=== PATIENT | male | born 1970 | race Hispanic/Latino ===

== ENCOUNTER 2019-10-15 06:18 | Inpatient (IN) | payer OTHER ==
[2019-10-15] VITALS (46 sets, daily range): BP systolic 41–201; BP diastolic 22–124
[~2019-10-15] VITALS: Ht 162.6 cm; Wt 77.9 kg
[2019-10-15] MEDS ORDERED: THIAMINE HCL 100 MG/ML 2ML VIAL ONE (06:39)
[2019-10-15] MEDS ORDERED: SODIUM CHLORIDE 0.9% 1000ML 1,000 ML IV ONE ×3 (06:40→09:46)
[2019-10-15 06:50] LABS: BASOPHILS % (AUTO) 0.2 % (0.0-5.0); EOSINOPHILS % (AUTO) 0.2 % (0.0-8.0); HEMATOCRIT 31.1 % (42-54); LYMPHOCYTES % (AUTO) 11.6 % (21.0-51.0); MEAN CORPUSCULAR HEMOGLOBIN 26.3 pg (27.0-33.0); MEAN CORPUSCULAR HGB CONC 33.8 g/dL (32.0-36.0); MEAN CORPUSCULAR VOLUME 77.8 fL (79-99); MONOCYTES % (AUTO) 1.6 % (3.0-13.0); NEUTROPHILS % (AUTO) 84.8 % (40.0-77.0); NUCLEATED RED BLOOD CELLS 0.1 % (0.0-0.19); PLATELET COUNT (AUTO) 244 K/uL (130-400); RED CELL DISTRIBUTION WIDTH 14.8 % (11.0-15.5)
[2019-10-15] MEDS ORDERED: NITROGLYCERIN 1GM/1 INCH PACKET TD ONE (07:04)
[2019-10-15 07:17] LABS: ALANINE AMINOTRANSFERASE 30 U/L (12-78); ALBUMIN 1.3 g/dL (3.5-5.0); ASPARTATE AMINOTRANSFERASE 38 U/L (10-37); BILIRUBIN,TOTAL 0.6 mg/dL (0.2-1.0); CARBON DIOXIDE 14 mmol/L (21-32); CHLORIDE 96 mmol/L (101-111); GLOMERULAR FILTR. RATE CALC 7 mL/min (>60); GLUCOSE,RANDOM 228 mg/dL (70-105); POTASSIUM 5.2 mmol/L (3.5-5.1); SODIUM SERUM 127 mmol/L (136-145); TOTAL PROTEIN, SERUM 7.5 g/dL (6.0-8.3)
[2019-10-15 07:43] LABS: AMPHET/METH SCREEN,URINE NEGATIVE (NEGATIVE); BARBITURATE SCREEN, URINE NEGATIVE (NEGATIVE); BENZODIAZEPINES SCREEN,URINE NEGATIVE (NEGATIVE); CANNABINOID SCREEN,URINE NEGATIVE (NEGATIVE); COCAINE SCREEN,URINE POSITIVE (NEGATIVE); OPIATE SCREEN,URINE NEGATIVE (NEGATIVE); PHENCYCLIDINE SCREEN,URINE NEGATIVE (NEGATIVE)
[2019-10-15] MEDS ORDERED: LORAZEPAM 2 MG/ML 1 ML VIAL ONE (07:45)
[2019-10-15 08:04] LABS: CREATININE 9.2 mg/dL (0.5-1.5); UREA NITROGEN, BLOOD 102 mg/dL (7-18)
[2019-10-15] MEDS ORDERED: SODIUM BICARB 50MEQ 50ML VIAL ONE (08:21)
[2019-10-15] MEDS ORDERED: INSULIN HUMULIN R 100 UNIT/ML 3ML ONE (08:23)
[2019-10-15 08:30] LABS: APPEARANCE,URINE SL CLOUDY (CLEAR); BILIRUBIN,URINE NEGATIVE (NEGATIVE); COLOR,URINE YELLOW (YELLOW); GLUCOSE, URINE (UA) 100 mg/dL (NEGATIVE); KETONES,URINE NEGATIVE (NEGATIVE); LEUKOCYTE ESTERASE ,URINE NEGATIVE (NEGATIVE); NITRATE,URINE NEGATIVE (NEGATIVE); OCCULT BLOOD,URINE SMALL (NEGATIVE); PH,URINE 5.5 (5.0-8.0); PROTEIN,URINE >=300 mg/dL (NEGATIVE); UROBILINOGEN,URINE 0.2 mg/dL (0.2-1.0)
[2019-10-15 08:42] LABS: AMORPHOUS SEDIMENT,UR Moderate /LPF (None Seen)
[2019-10-15 08:43] LABS: BACTERIA,URINE Few /HPF (None Seen); RBC,URINE 0-1 /HPF (0-1); WBC,URINE 0-1 /HPF (0-1)
[2019-10-15 08:44] LABS: SQUAMOUS EPITHELIAL CELL,UR 0-2 /HPF (0-2)
[2019-10-15 08:49] LABS: ACETAMINOPHEN < 1 mcg/mL (10-29); ALCOHOL, BLOOD < 3 mg/dL (0-10); SALICYLATE < 2.8 mg/dL (2.8-20.0)
[2019-10-15 09:07] LABS: INR 1.06 (0.85-1.15); PARTIAL THROMBOPLASTIN TIME 32.3 SEC (26.3-35.5); PROTHROMBIN TIME 11.1 SEC (9.6-11.6)
[2019-10-15 09:07] LABS: ABG BASE EXCESS -12.5 mmol/L (-2.0-3.0); ABG HCO3 11.3 mmol/L (21.0-28.0); ABG OXYGEN SATURATION 92.4 % (95.0-99.0); ABG PCO2 21 mmHg (35-48)
[2019-10-15] MEDS ORDERED: SODIUM BICARB 8.4% 50ML SYRING 150 MEQ in SODIUM CHLORIDE 0.9% 1000ML 1,000 ML IVP SCH (09:15)
[2019-10-15 09:17] LABS: CREATINE KINASE, TOTAL 78 U/L (21-232); MYOGLOBIN 223 ng/mL (10-92); TROPONIN I < 0.04 ng/mL (0.00-0.06)
[2019-10-15] MEDS ORDERED: ZOSYN 3.375GM+NS 50ML 50 ML IV ONE (09:19)
[2019-10-15] MEDS ORDERED: SODIUM CHLORIDE 0.9% 1000ML 1,000 ML IV SCH (09:22)
[2019-10-15] MEDS ORDERED: DiphenhydrAMINE HCL 50 MG/ML VIAL ONE (09:29)
[2019-10-15] MEDS ORDERED: PROCHLORPERAZINE EDISYLATE 10 MG/2 ML VIAL ONE (09:29)
[2019-10-15] MEDS ORDERED: VANCOMYCIN 1GM+NS 250ML 250 ML IV SCH (09:30)
[2019-10-15] MEDS ORDERED: VANCOMYCIN 1.25 GM in SODIUM CHLORIDE 0.9% 250 ML IV SCH (09:30)
[2019-10-15] MEDS ORDERED: ACETAMINOPHEN 325 MG TAB PO PRN (09:30)
[2019-10-15] MEDS ORDERED: MORPHINE SULFATE 2 MG/ML 1ML SYG IV PRN (09:30)
[2019-10-15] MEDS ORDERED: ONDANSETRON HCL 4 MG/2 ML VIAL IV PRN (09:30)
[2019-10-15] MEDS ORDERED: ETOMIDATE 2 MG/ML 10 ML VIAL IVP ONE (11:47)
[2019-10-15] MEDS ORDERED: EPINEPHRINE 0.1 MG/ML 10 ML SYG IVP ONE ×2 (11:48→14:23)
[2019-10-15] MEDS ORDERED: SODIUM BICARB 8.4% 50ML SYRINGE IVP ONE (11:48)
[2019-10-15] MEDS ORDERED: CALCIUM CHLORIDE 100 MG/ML 10 ML SYG IVP ONE (11:48)
[2019-10-15] MEDS: INSULIN HUMULIN R 100 UNIT/ML 3ML SQ SCH ×4 (12:00→21:00)
--- NOTE | 2019-10-15 12:05 | NUR ---
patient arrived from ER; restless, confused, and slurred speech; very anxious and trying to pull out piv and tele monitor; at bedside; md aware; orders to follow
[2019-10-15] MEDS ORDERED: LORAZEPAM 2 MG/ML 1 ML VIAL IVP PRN (13:06)
[2019-10-15] MEDS: MEROPENEM 500 MG VIAL IV SCH ×2 (13:15→21:34)
[2019-10-15] MEDS ORDERED: LABETALOL HCL 5 MG/ML 20ML VIAL IV SCH (13:15)
[2019-10-15] MEDS: FAMOTIDINE/PF 20 MG/2 ML VIAL IV SCH (13:15)
[2019-10-15] MEDS ORDERED: ZIPRASIDONE MESYLATE 20 MG/VIAL IM PRN (14:15)
[2019-10-15] MEDS ORDERED: ROCURONIUM BROMIDE 10MG/1ML 5ML VL IV ONE (14:22)
[2019-10-15] MEDS ORDERED: NOREPINEPHRINE BITARTRATE 1 MG/1 ML ML IV ONE (14:23)
[2019-10-15] MEDS: LINEZOLID 600 MG/ISO-OSM 300 ML IV SCH (14:28)
[2019-10-15] MEDS ORDERED: SODIUM POLYSTYRENE SULFONATE 15 GM/60 ML ML PO SCH (14:30)
[2019-10-15] MEDS ORDERED: LABETALOL 20 MG/4 ML DISP.SYRIN IV PRN (14:30)
[2019-10-15] MEDS ORDERED: OSELTAMIVIR PHOSPHATE 75 MG CAP PO SCH (14:30)
[2019-10-15] MEDS ORDERED: CALCIUM GLUCONATE 1 GM/10 ML VIAL IV SCH (14:30)
[2019-10-15] MEDS ORDERED: DEXTROSE 50%-WATER 50 ML DISP.SYRIN IV SCH (14:30)
[2019-10-15] MEDS: DIAZEPAM 5 MG/ML 2 ML SYG IV SCH ×2 (14:38→21:40)
[2019-10-15 14:40] LABS: POTASSIUM 4.8 mmol/L (3.5-5.1)
[2019-10-15 14:41] LABS: % IRON SATURATION 26.4 % (30-44)
[2019-10-15 14:45] LABS: CREATININE 8.2 mg/dL (0.5-1.5)
[2019-10-15] MEDS ORDERED: PROPOFOL 1000 MG/100 ML 100 ML IV ONE (14:45)
[2019-10-15] MEDS ORDERED: FENTANYL CITRATE PF 50 MCG/1 ML 2ML VIAL IVP SCH (14:45)
[2019-10-15] MEDS ORDERED: PROPOFOL 1000 MG/100 ML IV PRN (14:45)
[2019-10-15] MEDS ORDERED: FENTANYL CITRATE PF 50 MCG/1 ML 2ML VIAL ONE (14:46)
[2019-10-15] MEDS ORDERED: PROPOFOL 1000 MG/100 ML 100 ML IV PRN (15:00)
[2019-10-15] MEDS ORDERED: CALCIUM GLUCONATE 1 GM in SODIUM CHLORIDE 0.9% 50 ML IV SCH (15:00)
[2019-10-15] MEDS ORDERED: COMPOUND PO MISCELLANEOUS 1 EACH MISC MISC PRN (15:00)
[2019-10-15] MEDS ORDERED: HYDROMORPHONE 4MG/ML 1ML VIAL IVP PRN (15:00)
[2019-10-15 15:25] LABS: ABG BASE EXCESS -11.4 mmol/L (-2.0-3.0); ABG HCO3 14.3 mmol/L (21.0-28.0); ABG OXYGEN SATURATION 91.2 % (95.0-99.0); ABG PCO2 31 mmHg (35-48)
[2019-10-15 15:30] LABS: PROTEIN,URINE RANDOM 651.9 mg/dL (0-11.9)
[2019-10-15] MEDS ORDERED: NOREPINEPHRINE 4MG/NS 250ML 250 ML IV SCH (15:45)
[2019-10-15] MEDS: MIDAZOLAM 100MG-0.9% NS 100ML 100 ML IV PRN (15:47)
[2019-10-15] MEDS: SODIUM BICARB 8.4% 50ML SYRING 150 MEQ in DEXTROSE 5%-WATER 1,000 ML IV SCH (15:47)
[2019-10-15] MEDS: M.V.I. IV [ADULT] 10 ML, FOLIC ACID 1 MG, THIAMINE HCL 100 MG in SODIUM CHLORIDE 0.9% 1... IV SCH (15:49)
[2019-10-15] MEDS: ATROPINE SULFATE 0.1 MG/ML 10 ML SYG IVP ONE ×2 (15:54→16:01)
[2019-10-15] MEDS ORDERED: ATROPINE SULFATE 0.1 MG/ML 10 ML SYG IVP SCH (16:00)
--- NOTE | 2019-10-15 16:00 | NUR ---
patient intubated at 1450, became bradycardic and pulseless, which resulted in code blue being called; patient received cpr and meds as charted in code blue form; family in waiting area and aware; family updated by dr doshi and dr helton.
--- NOTE | 2019-10-15 16:00 | NUR ---
successful lumbar puncture done at bedside by dr doshi; specimens sent to lab; patient remains intubated and sedated
[2019-10-15] MEDS: ARTIFICAL TEARS SOL 15 ML OU SCH ×3 (16:06→21:35)
[2019-10-15 16:42] LABS: GLUCOSE, CSF 66 mg/dL (40-70); TOTAL PROTEIN, CSF 37 mg/dL (15-45)
[2019-10-15] MEDS ORDERED: CISATRACURIUM BESYLATE 200 MG in SODIUM CHLORIDE 0.9% 180 ML IV PRN (17:00)
[2019-10-15] MEDS ORDERED: SODIUM BICARB 50MEQ 50ML VIAL IV SCH (17:00)
--- NOTE | 2019-10-15 17:30 | NUR ---
patient placed on cooling blanket for hypothermia protocol as per Dr. Hay's order; blanket set to 33 degrees Celsius
[2019-10-15] MEDS: NOREPINEPHRINE 4MG/NS 250ML 250 ML IV SCH (17:33)
[2019-10-15] MEDS: SODIUM CHLORIDE 0.9% IV PRN (17:43)
[2019-10-15] MEDS: CISATRACURIUM BESYLATE IV PRN (17:43)
[2019-10-15 17:44] LABS: APPEARANCE,CSF CLEAR (CLEAR); COLOR,CSF COLORLESS (COLORLESS); CSF TUBE NUMBER TUBE NO.1
[2019-10-15 17:45] LABS: RED BLOOD CELL1,CSF 60 CMM (0-0); WHITE BLOOD CELL1,CSF 25 CMM (0-5)
--- NOTE | 2019-10-15 18:00 | NUR ---
patient continues to be 4:4 for TOF; will continue to increase nimbex until goal of 1:4 is reached, as ordered by Dr. Hay
[2019-10-15] MEDS: IPRATROPIUM/ALBUTEROL SULFATE 3 ML SOLUTION IH SCH ×2 (18:13→21:49)
[2019-10-15 18:36] LABS: APPEARANCE2,CSF CLEAR (CLEAR); COLOR2,CSF COLORLESS (COLORLESS); CSF 2ND TUBE NUMBER TUBE NO.4
[2019-10-15 19:19] LABS: LYMPHOCYTES1,CSF 65 %; MONOCYTES1,CSF 7 %; NEUTROPHILS1,CSF 28 %
[2019-10-15 19:53] LABS: ABG BASE EXCESS -7.7 mmol/L (-2.0-3.0); ABG HCO3 17.2 mmol/L (21.0-28.0); ABG OXYGEN SATURATION 99.6 % (95.0-99.0); ABG PCO2 34 mmHg (35-48)
[2019-10-15 20:22] LABS: HEMATOCRIT 25.9 % (42-54); MEAN CORPUSCULAR HEMOGLOBIN 26.5 pg (27.0-33.0); PLATELET COUNT (AUTO) 161 K/uL (130-400); RED BLOOD CELL COUNT(AUTO) 3.32 MIL/uL (4.50-6.20); RED CELL DISTRIBUTION WIDTH 14.8 % (11.0-15.5); WHITE BLOOD COUNT (AUTO) 13.9 K/uL (4.8-10.8)
[2019-10-15 20:53] LABS: POTASSIUM 4.7 mmol/L (3.5-5.1)
[2019-10-15 21:00] LABS: CREATININE 8.1 mg/dL (0.5-1.5)
[2019-10-15 21:09] LABS: CSF LYMPHOCYTES2 56 %; MONOCYTES2,CSF 2 %; NEUTROPHILS2,CSF 42 %
[2019-10-15] MEDS: COMPOUNDING VEHICLE NO 8 PO SCH ×3 (21:31)
[2019-10-15] MEDS: [UNRECOGNIZED DRUG - OTHER] PO SCH ×3 (21:31)
[2019-10-15] MEDS: OSELTAMIVIR PHOSPHATE PO SCH ×3 (21:31)
[2019-10-15 21:43] LABS: BAND NEUTROPHILS % (MANUAL) 10 % (0-2); LYMPHOCYTES % (MANUAL) 6 % (22-44); REACTIVE LYMPHOCYTES 1 % (0-0); SEGMENTED NEUTROPHILS % 83 % (40-70)
[2019-10-15 21:43] LABS: ABG BASE EXCESS -8.7 mmol/L (-2.0-3.0); ABG HCO3 16.6 mmol/L (21.0-28.0); ABG OXYGEN SATURATION 97.3 % (95.0-99.0); ABG PCO2 35 mmHg (35-48)
[2019-10-15 21:44] LABS: MAN.DIFF COMMENT-IMPRESSION MANUAL DIFFERENTIAL
[2019-10-16] VITALS (99 sets, daily range): BP systolic 74–212; BP diastolic 52–116
[2019-10-16] MEDS: SODIUM CHLORIDE 0.9% IV PRN ×3 (00:19→20:53)
[2019-10-16] MEDS: CISATRACURIUM BESYLATE IV PRN ×3 (00:19→20:53)
[2019-10-16] MEDS: MIDAZOLAM 100MG-0.9% NS 100ML 100 ML IV PRN ×3 (00:21→23:14)
[2019-10-16] MEDS: IPRATROPIUM/ALBUTEROL SULFATE 3 ML SOLUTION IH SCH ×6 (01:31→22:21)
[2019-10-16] MEDS: SODIUM BICARB 8.4% 50ML SYRING 150 MEQ in DEXTROSE 5%-WATER 1,000 ML IV SCH ×3 (01:35→20:55)
[2019-10-16] MEDS: LINEZOLID 600 MG/ISO-OSM 300 ML IV SCH ×2 (01:36→14:26)
[2019-10-16] MEDS: ARTIFICAL TEARS SOL 15 ML OU SCH ×6 (03:00→21:04)
[2019-10-16 03:44] LABS: BASOPHILS % (AUTO) 0.1 % (0.0-5.0); EOSINOPHILS % (AUTO) 0.8 % (0.0-8.0); HEMATOCRIT 21.8 % (42-54); LYMPHOCYTES % (AUTO) 2.4 % (21.0-51.0); MEAN CORPUSCULAR HEMOGLOBIN 26.2 pg (27.0-33.0); MEAN CORPUSCULAR HGB CONC 33.9 g/dL (32.0-36.0); MEAN CORPUSCULAR VOLUME 77.3 fL (79-99); MONOCYTES % (AUTO) 1.3 % (3.0-13.0); NEUTROPHILS % (AUTO) 93.6 % (40.0-77.0); PLATELET COUNT (AUTO) 125 K/uL (130-400); RED BLOOD CELL COUNT(AUTO) 2.82 MIL/uL (4.50-6.20); RED CELL DISTRIBUTION WIDTH 14.6 % (11.0-15.5); WHITE BLOOD COUNT (AUTO) 7.2 K/uL (4.8-10.8)
[2019-10-16 04:00] LABS: HEMOGLOBIN A1C 5.4 % (4.0-6.0)
[2019-10-16 04:04] LABS: ALANINE AMINOTRANSFERASE 21 U/L (12-78); ALBUMIN 0.8 g/dL (3.5-5.0); ASPARTATE AMINOTRANSFERASE 23 U/L (10-37); BILIRUBIN,TOTAL 0.4 mg/dL (0.2-1.0); CARBON DIOXIDE 22 mmol/L (21-32); CHLORIDE 102 mmol/L (101-111); CREATININE 7.5 mg/dL (0.5-1.5); GLOMERULAR FILTR. RATE CALC 8 mL/min (>60); PHOSPHORUS 8.3 mg/dL (2.5-4.9); POTASSIUM 3.8 mmol/L (3.5-5.1); SODIUM SERUM 137 mmol/L (136-145); TOTAL PROTEIN, SERUM 4.9 g/dL (6.0-8.3)
[2019-10-16 04:15] LABS: ABG BASE EXCESS -3.4 mmol/L (-2.0-3.0); ABG HCO3 19.6 mmol/L (21.0-28.0); ABG OXYGEN SATURATION 99.2 % (95.0-99.0); ABG PCO2 30 mmHg (35-48)
[2019-10-16 04:15] LABS: INR 1.09 (0.85-1.15); PARTIAL THROMBOPLASTIN TIME 32.5 SEC (26.3-35.5); PROTHROMBIN TIME 11.4 SEC (9.6-11.6)
[2019-10-16 04:32] LABS: GLUCOSE,RANDOM 268 mg/dL (70-105)
[2019-10-16 04:34] LABS: AMMONIA < 10 umol/L (11-32)
[2019-10-16 04:35] LABS: UREA NITROGEN, BLOOD 90 mg/dL (7-18)
[2019-10-16] MEDS: DIAZEPAM 5 MG/ML 2 ML SYG IV SCH ×3 (06:15→21:03)
[2019-10-16] MEDS: INSULIN HUMULIN R 100 UNIT/ML 3ML SQ SCH ×8 (06:28→21:00)
--- NOTE | 2019-10-16 08:02 | NUR ---
patient remains on cooling blanket for hypothermia protocol; TOF remains 4:4 but subtly visible
[2019-10-16] MEDS: MEROPENEM 500 MG VIAL IV SCH ×2 (08:39→20:53)
[2019-10-16] MEDS: FAMOTIDINE/PF 20 MG/2 ML VIAL IV SCH (08:39)
[2019-10-16] MEDS: [UNRECOGNIZED DRUG - OTHER] PO SCH ×6 (08:43→20:54)
[2019-10-16] MEDS: OSELTAMIVIR PHOSPHATE PO SCH ×6 (08:43→20:54)
[2019-10-16] MEDS: COMPOUNDING VEHICLE NO 8 PO SCH ×6 (08:43→20:54)
[2019-10-16] MEDS ORDERED: FLU VACC QS2019-20 36MOS UP/PF 60 MCG/0.5 ML ML IM SCH (09:00)
[2019-10-16] MEDS ORDERED: ENOXAPARIN SODIUM 30 MG/0.3 ML SQ SCH (09:00)
[2019-10-16] MEDS: M.V.I. IV [ADULT] 10 ML, FOLIC ACID 1 MG, THIAMINE HCL 100 MG in SODIUM CHLORIDE 0.9% 1... IV SCH (09:05)
[2019-10-16 15:01] LABS: ALBUMIN 0.6 g/dL (3.5-5.0); CREATININE 7.2 mg/dL (0.5-1.5)
[2019-10-16 15:14] LABS: HEMATOCRIT 19.2 % (42-54)
[2019-10-16 16:48] LABS: RETICULOCYTE % (AUTO) 0.35 % (0.42-2.23)
--- NOTE | 2019-10-16 16:56 | NUR ---
cm note met with patients tami, pt currently intubated. states pt resides athome with her and adult child, pt independent with ambulation and adls. no dme. states will probably need Hemodialysis.[facility] has already spoken to [employer] about possible disability. will continue to follow as pt progresses. Addendum: 10/16/19 at 1701 by KYLE PUENTE CM Amended: Links added.
[2019-10-16] MEDS ORDERED: SODIUM CHLORIDE 0.9% 1000ML 1,000 ML IV ONE (17:46)
--- NOTE | 2019-10-16 18:44 | NUR ---
ns liter pulled for dialysis; not given
[2019-10-16] MEDS ORDERED: PANTOPRAZOLE 40 MG/VIAL IVP SCH (19:30)
[2019-10-16] MEDS ORDERED: SODIUM CHLORIDE 0.9% 1000ML 1,000 ML IV PRN (19:45)
[2019-10-16] MEDS ORDERED: LIDOCAINE HCL-MPF 1% 2ML VIAL IJ PRN (19:45)
[2019-10-16] MEDS ORDERED: HEPARIN SODIUM 5000UNIT/ML 1ML VIAL IJ PRN (19:45)
[2019-10-16] MEDS ORDERED: 0.9% SODIUM CHLORIDE 1000 ML IV BAG IV PRN (19:45)
[2019-10-16] MEDS ORDERED: ACETAMINOPHEN 325 MG TAB PO PRN (19:45)
[2019-10-16] MEDS ORDERED: OCTREOTIDE ACETATE 100 MCG/ML AMP IV SCH (19:45)
[2019-10-16] MEDS: HEPARIN SODIUM 5000UNIT/ML 1ML VIAL IJ PRN (19:54)
[2019-10-16] MEDS: OCTREOTIDE ACETATE 500 MCG in SODIUM CHLORIDE 0.9% 97.5 ML IV PRN (20:55)
[2019-10-16] MEDS: PANTOPRAZOLE SODIUM 80 MG in SODIUM CHLORIDE 0.9% 100 ML IV SCH (20:56)
[2019-10-16 22:31] LABS: HEMATOCRIT 25.5 % (42-54)
[2019-10-17] VITALS (92 sets, daily range): BP systolic 79–199; BP diastolic 48–119
[2019-10-17] MEDS: IPRATROPIUM/ALBUTEROL SULFATE 3 ML SOLUTION IH SCH ×6 (02:28→22:06)
[2019-10-17] MEDS: LINEZOLID 600 MG/ISO-OSM 300 ML IV SCH ×2 (02:32→12:50)
[2019-10-17] MEDS: ARTIFICAL TEARS SOL 15 ML OU SCH ×6 (02:33→23:00)
[2019-10-17 03:53] LABS: ABG BASE EXCESS 1.6 mmol/L (-2.0-3.0); ABG HCO3 23.6 mmol/L (21.0-28.0); ABG OXYGEN SATURATION 96.2 % (95.0-99.0); ABG PCO2 30 mmHg (35-48)
[2019-10-17 04:05] LABS: HEMATOCRIT 23.9 % (42-54); MEAN CORPUSCULAR HEMOGLOBIN 26.9 pg (27.0-33.0); MEAN CORPUSCULAR HGB CONC 35.1 g/dL (32.0-36.0); MEAN CORPUSCULAR VOLUME 76.6 fL (79-99); PLATELET COUNT (AUTO) 73 K/uL (130-400); RED BLOOD CELL COUNT(AUTO) 3.12 MIL/uL (4.50-6.20); RED CELL DISTRIBUTION WIDTH 14.3 % (11.0-15.5); WHITE BLOOD COUNT (AUTO) 6.3 K/uL (4.8-10.8)
[2019-10-17 04:20] LABS: BILIRUBIN,TOTAL 0.4 mg/dL (0.2-1.0); CREATININE 4.7 mg/dL (0.5-1.5); INR 1.16 (0.85-1.15); MAGNESIUM 2.2 mg/dL (1.80-2.40); PARTIAL THROMBOPLASTIN TIME 46.4 SEC (26.3-35.5); PHOSPHORUS 5.3 mg/dL (2.5-4.9); PROTHROMBIN TIME 12.1 SEC (9.6-11.6); TOTAL PROTEIN, SERUM 4.1 g/dL (6.0-8.3)
[2019-10-17 04:26] LABS: ALBUMIN 0.6 g/dL (3.5-5.0)
--- NOTE | 2019-10-17 05:18 | NUR ---
Assumed care at 1900. Patient remains on hypothermia protocol. Patient sedated and paralyzed. Dialysis stopped at approximately 1930. 500cc pulled as per dialysis nurse. Protonix drip and sandostatin initiated on shift as ordered. Patient continues on multiple continuous infusions. Multi lumen PICC line placement should be considered. Will communicate to oncoming shift to discuss with primary. Will continue to monitor.
[2019-10-17] MEDS: DIAZEPAM 5 MG/ML 2 ML SYG IV SCH (05:42)
[2019-10-17] MEDS: INSULIN HUMULIN R 100 UNIT/ML 3ML SQ SCH ×5 (06:00→18:00)
[2019-10-17] MEDS: MEROPENEM 500 MG VIAL IV SCH ×2 (08:03→21:11)
[2019-10-17] MEDS: FAMOTIDINE/PF 20 MG/2 ML VIAL IV SCH (08:04)
[2019-10-17] MEDS: PANTOPRAZOLE SODIUM 80 MG in SODIUM CHLORIDE 0.9% 100 ML IV SCH ×2 (08:16→16:54)
[2019-10-17] MEDS: [UNRECOGNIZED DRUG - OTHER] PO SCH ×6 (08:23→21:00)
[2019-10-17] MEDS: COMPOUNDING VEHICLE NO 8 PO SCH ×6 (08:23→21:00)
[2019-10-17] MEDS: OSELTAMIVIR PHOSPHATE PO SCH ×6 (08:23→21:00)
[2019-10-17] MEDS: FENTANYL 2500MCG+NS 250ML 250 ML IV PRN (08:49)
[2019-10-17] MEDS ORDERED: DIAZEPAM 5 MG/ML 2 ML SYG IV PRN (09:45)
[2019-10-17] MEDS: MIDAZOLAM 100MG-0.9% NS 100ML 100 ML IV PRN ×2 (10:08→19:44)
[2019-10-17] MEDS ORDERED: PHARMACY COMMUNICATION MISC SCH (11:15)
--- NOTE | 2019-10-17 11:31 | NUR ---
YUKO PLAN PATIENT VENTED STILL PENDING DIALYSIS TREATMENT. ELIZABETH WILL CONTINUE TO FOLLOW. Addendum: 10/17/19 at 1132 by ANNIE SOARES RN CM Amended: Links added.
[2019-10-17] MEDS: NOREPINEPHRINE 4MG/NS 250ML 250 ML IV SCH (11:38)
[2019-10-17] MEDS ORDERED: MIDODRINE HCL 5 MG TABLET PO SCH (12:00)
[2019-10-17] MEDS ORDERED: VANCOMYCIN 500MG+NS 100ML 100 ML IV SCH (12:00)
[2019-10-17] MEDS: MIDODRINE HCL 5 MG TABLET PO SCH ×2 (13:04→21:16)
[2019-10-17] MEDS: M.V.I. IV [ADULT] 10 ML, FOLIC ACID 1 MG, THIAMINE HCL 100 MG in SODIUM CHLORIDE 0.9% 1... IV SCH (13:04)
--- NOTE | 2019-10-17 14:07 | NUR ---
RD NOTIFICATION DIET: NPO X 2DAYS. LBM: 10/16; DIARRHEA NOTED. LABS REVIEWED. MEDS REVIEWED. PENDING EGD FOR POSITIVE STOOL OCCULT; PT WITH POSSIBLE GI BLEED. PT NOW ON DIALYSIS DUE TO RENAL FAILURE. FAMILY STATED POOR PO PRIOR TO ADMISSION. NO SIGNIFICANT WEIGHT CHANGES NOTED. RD RECOMMENDS TO CONTINUE NPO UNTIL CLEARED FROM GI ADVANCE DIET TOLERATED WHEN MEDICALLY FEASIBLE PARENTERAL NUTRITION VS ENTERAL NUTRITION- PENDING MONITOR LABS AND BOWEL MOVEMENTS RD WILL CONTINUE TO MONITOR AND FOLLOW UP, THANK YOU. Addendum: 10/17/19 at [address] Amended: Links added.
[2019-10-17] MEDS: PHARMACY COMMUNICATION MISC SCH ×2 (14:15→22:15)
--- NOTE | 2019-10-17 14:15 | NUR ---
SPOKE TO PHARMACY ON DUTY, TO NOTIFY ABOUT PATIENT RECEIVING SECOND HD TREATMENT AT THIS TIME, FOR DOSE OF FLUCYTOSINE TO BE ADJUSTED
[2019-10-17] MEDS: OCTREOTIDE ACETATE 500 MCG in SODIUM CHLORIDE 0.9% 97.5 ML IV PRN (15:30)
[2019-10-17] MEDS: HEPARIN SODIUM 5000UNIT/ML 1ML VIAL IJ PRN (16:49)
[2019-10-17] MEDS: AMPHOTERICIN B LIPOSOME IV SCH (17:05)
[2019-10-17] MEDS: WATER IV SCH (17:05)
[2019-10-17] MEDS: DEXTROSE 5% IV SCH (17:05)
[2019-10-18] VITALS (31 sets, daily range): BP systolic 91–223; BP diastolic 50–92
[2019-10-18] MEDS: IPRATROPIUM/ALBUTEROL SULFATE 3 ML SOLUTION IH SCH ×6 (01:20→21:52)
[2019-10-18] MEDS: LINEZOLID 600 MG/ISO-OSM 300 ML IV SCH ×2 (02:14→17:32)
[2019-10-18 03:07] LABS: HEPATITIS A ANTIBODY IGM Negative (Negative); HEPATITIS B CORE IGM Negative (Negative); HEPATITIS Bs ANTIGEN SCREEN P Negative (Negative)
[2019-10-18 04:07] LABS: ABG HCO3 21.6 mmol/L (21.0-28.0); ABG OXYGEN SATURATION 93.8 % (95.0-99.0); ABG PCO2 34 mmHg (35-48)
[2019-10-18 04:07] LABS: MEAN CORPUSCULAR HEMOGLOBIN 26.9 pg (27.0-33.0); MEAN CORPUSCULAR HGB CONC 34.6 g/dL (32.0-36.0); MEAN CORPUSCULAR VOLUME 77.6 fL (79-99); NUCLEATED RED BLOOD CELLS 0.2 % (0.0-0.19); PLATELET COUNT (AUTO) 41 K/uL (130-400); RED BLOOD CELL COUNT(AUTO) 3.61 MIL/uL (4.50-6.20); RED CELL DISTRIBUTION WIDTH 14.6 % (11.0-15.5); WHITE BLOOD COUNT (AUTO) 8.9 K/uL (4.8-10.8)
[2019-10-18] MEDS: FLUCYTOSINE 500 MG PO SCH ×2 (04:09→20:26)
[2019-10-18 04:21] LABS: INR 1.03 (0.85-1.15); PARTIAL THROMBOPLASTIN TIME 32.6 SEC (26.3-35.5); PROTHROMBIN TIME 10.8 SEC (9.6-11.6)
[2019-10-18 04:33] LABS: ALBUMIN 0.7 g/dL (3.5-5.0); BILIRUBIN,TOTAL 0.4 mg/dL (0.2-1.0); MAGNESIUM 1.9 mg/dL (1.80-2.40); POTASSIUM 3.8 mmol/L (3.5-5.1); TOTAL PROTEIN, SERUM 4.8 g/dL (6.0-8.3)
[2019-10-18] MEDS: ARTIFICAL TEARS SOL 15 ML OU SCH ×6 (04:38→22:40)
[2019-10-18] MEDS: INSULIN HUMULIN R 100 UNIT/ML 3ML SQ SCH ×4 (06:00→18:00)
[2019-10-18] MEDS: PHARMACY COMMUNICATION MISC SCH ×3 (06:15→22:15)
[2019-10-18] MEDS: MIDAZOLAM 100MG-0.9% NS 100ML 100 ML IV PRN ×2 (06:31→19:06)
[2019-10-18] MEDS: MEROPENEM 500 MG VIAL IV SCH ×2 (08:49→20:25)
[2019-10-18] MEDS: MIDODRINE HCL 5 MG TABLET PO SCH ×3 (08:53→20:26)
[2019-10-18] MEDS: OSELTAMIVIR PHOSPHATE PO SCH ×3 (09:10)
[2019-10-18] MEDS: COMPOUNDING VEHICLE NO 8 PO SCH ×3 (09:10)
[2019-10-18] MEDS: [UNRECOGNIZED DRUG - OTHER] PO SCH ×3 (09:10)
[2019-10-18] MEDS: FENTANYL 2500MCG+NS 250ML 250 ML IV PRN ×2 (09:11→23:59)
[2019-10-18] MEDS: OCTREOTIDE ACETATE 500 MCG in SODIUM CHLORIDE 0.9% 97.5 ML IV PRN (09:35)
[2019-10-18] MEDS: M.V.I. IV [ADULT] 10 ML, FOLIC ACID 1 MG, THIAMINE HCL 100 MG in SODIUM CHLORIDE 0.9% 1... IV SCH (09:48)
[2019-10-18 11:10] LABS: HEPATITIS Bs ANTIGEN SCREEN P Negative (Negative)
[2019-10-18] MEDS ORDERED: DEXTROSE 50%-WATER 50 ML DISP.SYRIN IV ONE (11:13)
[2019-10-18] MEDS: ACETAMINOPHEN 325 MG TAB PO PRN (11:21)
[2019-10-18] MEDS ORDERED: GLUCAGON 1MG KIT 1 MG ML IM PRN (11:45)
[2019-10-18 12:37] LABS: ABG BASE EXCESS -10.1 mmol/L (-2.0-3.0); ABG HCO3 14.6 mmol/L (21.0-28.0); ABG OXYGEN SATURATION 98.7 % (95.0-99.0); ABG PCO2 28 mmHg (35-48)
[2019-10-18] MEDS ORDERED: LEVETIRACETAM 1,000 MG in SODIUM CHLORIDE 0.9% 100 ML IV SCH (13:09)
[2019-10-18] MEDS ORDERED: EPINEPHRINE 10 MG in SODIUM CHLORIDE 0.9% 250 ML IV SCH (13:15)
[2019-10-18] MEDS ORDERED: LORAZEPAM 2 MG/ML 1 ML VIAL IVP PRN (13:15)
[2019-10-18 13:16] LABS: CREATININE 4.7 mg/dL (0.5-1.5); POTASSIUM 4.3 mmol/L (3.5-5.1)
[2019-10-18 13:48] LABS: BASOPHILS % (AUTO) 0.3 % (0.0-5.0); EOSINOPHILS % (AUTO) 1.1 % (0.0-8.0); HEMATOCRIT 28.4 % (42-54); LYMPHOCYTES % (AUTO) 9.8 % (21.0-51.0); MEAN CORPUSCULAR HEMOGLOBIN 27.4 pg (27.0-33.0); MEAN CORPUSCULAR HGB CONC 34.2 g/dL (32.0-36.0); MEAN CORPUSCULAR VOLUME 80.2 fL (79-99); MONOCYTES % (AUTO) 1.3 % (3.0-13.0); NEUTROPHILS % (AUTO) 82.2 % (40.0-77.0); NUCLEATED RED BLOOD CELLS 0.9 % (0.0-0.19); PLATELET COUNT (AUTO) 47 K/uL (130-400); RED BLOOD CELL COUNT(AUTO) 3.54 MIL/uL (4.50-6.20)
[2019-10-18] MEDS ORDERED: IOHEXOL-350 75 ML VIAL IV ONE (14:01)
[2019-10-18] MEDS ORDERED: OSELTAMIVIR PHOSPHATE 75 MG CAP PO SCH (14:30)
[2019-10-18] MEDS ORDERED: SODIUM CHLORIDE 0.9% 250 ML IV ONE (15:04)
[2019-10-18] MEDS: DOXYCYCLINE 100MG+NS 250ML 250 ML IV SCH (17:32)
[2019-10-18] MEDS: DEXTROSE 5% IV SCH (20:25)
[2019-10-18] MEDS: AMPHOTERICIN B LIPOSOME IV SCH (20:25)
[2019-10-18] MEDS: WATER IV SCH (20:25)
[2019-10-18] MEDS: LEVETIRACETAM 500 MG in SODIUM CHLORIDE 0.9% 100 ML IV SCH (20:34)
[2019-10-18] MEDS ORDERED: PANTOPRAZOLE 40 MG/VIAL IVP SCH (21:00)
[2019-10-18] MEDS: NOREPINEPHRINE 4MG/NS 250ML 250 ML IV SCH (22:39)
[2019-10-19] VITALS (32 sets, daily range): BP systolic 92–139; BP diastolic 42–73
[2019-10-19] MEDS: LINEZOLID 600 MG/ISO-OSM 300 ML IV SCH (00:50)
[2019-10-19] MEDS: DEXTROSE 50%-WATER 50 ML DISP.SYRIN IV PRN ×2 (00:52→18:15)
[2019-10-19] MEDS: IPRATROPIUM/ALBUTEROL SULFATE 3 ML SOLUTION IH SCH ×6 (01:02→21:16)
[2019-10-19 03:58] LABS: ABG BASE EXCESS 1.6 mmol/L (-2.0-3.0); ABG OXYGEN SATURATION 96.7 % (95.0-99.0); ABG PCO2 36 mmHg (35-48)
[2019-10-19 05:00] LABS: BASOPHILS % (AUTO) 0.1 % (0.0-5.0); EOSINOPHILS % (AUTO) 1.8 % (0.0-8.0); HEMATOCRIT 23.5 % (42-54); LYMPHOCYTES % (AUTO) 8.3 % (21.0-51.0); MEAN CORPUSCULAR HEMOGLOBIN 26.8 pg (27.0-33.0); MEAN CORPUSCULAR HGB CONC 32.8 g/dL (32.0-36.0); MEAN CORPUSCULAR VOLUME 81.9 fL (79-99); MONOCYTES % (AUTO) 1.8 % (3.0-13.0); NEUTROPHILS % (AUTO) 85.5 % (40.0-77.0); NUCLEATED RED BLOOD CELLS 0.3 % (0.0-0.19); PLATELET COUNT (AUTO) 60 K/uL (130-400); RED BLOOD CELL COUNT(AUTO) 2.87 MIL/uL (4.50-6.20); RED CELL DISTRIBUTION WIDTH 15.3 % (11.0-15.5); WHITE BLOOD COUNT (AUTO) 7.3 K/uL (4.8-10.8)
[2019-10-19 05:11] LABS: INR 1.02 (0.85-1.15); PARTIAL THROMBOPLASTIN TIME 34.3 SEC (26.3-35.5); PROTHROMBIN TIME 10.7 SEC (9.6-11.6)
[2019-10-19 05:23] LABS: ALBUMIN 0.7 g/dL (3.5-5.0); BILIRUBIN,TOTAL 0.5 mg/dL (0.2-1.0); CREATININE 3.8 mg/dL (0.5-1.5); MAGNESIUM 1.8 mg/dL (1.80-2.40); PHOSPHORUS 4.4 mg/dL (2.5-4.9); POTASSIUM 3.8 mmol/L (3.5-5.1); TOTAL PROTEIN, SERUM 5.2 g/dL (6.0-8.3)
[2019-10-19] MEDS: DOXYCYCLINE 100MG+NS 250ML 250 ML IV SCH ×2 (05:42→15:11)
[2019-10-19] MEDS: MIDAZOLAM 100MG-0.9% NS 100ML 100 ML IV PRN ×2 (05:43→16:08)
[2019-10-19] MEDS: ARTIFICAL TEARS SOL 15 ML OU SCH ×5 (05:44→19:24)
[2019-10-19] MEDS: INSULIN HUMULIN R 100 UNIT/ML 3ML SQ SCH ×4 (05:44→17:57)
[2019-10-19 06:01] LABS: PLATELET MORPHOLOGY LARGE PLTS PRESENT
[2019-10-19] MEDS: PHARMACY COMMUNICATION MISC SCH ×3 (06:15→22:15)
[2019-10-19] MEDS: M.V.I. IV [ADULT] 10 ML, FOLIC ACID 1 MG, THIAMINE HCL 100 MG in SODIUM CHLORIDE 0.9% 1... IV SCH ×2 (09:00→19:15)
[2019-10-19] MEDS ORDERED: COMPOUNDING VEHICLE NO 8 PO SCH ×3 (09:00)
[2019-10-19] MEDS ORDERED: OSELTAMIVIR PHOSPHATE PO SCH ×3 (09:00)
[2019-10-19] MEDS ORDERED: [UNRECOGNIZED DRUG - OTHER] PO SCH ×3 (09:00)
[2019-10-19] MEDS: MEROPENEM 500 MG VIAL IV SCH ×2 (09:06→20:21)
[2019-10-19] MEDS: LEVETIRACETAM 500 MG in SODIUM CHLORIDE 0.9% 100 ML IV SCH ×2 (09:06→20:22)
[2019-10-19] MEDS: MIDODRINE HCL 5 MG TABLET PO SCH ×3 (09:06→20:26)
[2019-10-19] MEDS: FAMOTIDINE/PF 20 MG/2 ML VIAL IV SCH (09:06)
[2019-10-19] MEDS: OSELTAMIVIR SUSP 15 MG/ML (6 CAPS/29ML) PO SCH ×2 (09:47)
[2019-10-19] MEDS: NOREPINEPHRINE 4MG/NS 250ML 250 ML IV SCH (09:51)
[2019-10-19] MEDS: METOCLOPRAMIDE 10 MG/2 ML VIAL IVP SCH ×2 (12:37→18:15)
[2019-10-19] MEDS: FENTANYL 2500MCG+NS 250ML 250 ML IV PRN (12:39)
--- NOTE | 2019-10-19 19:30 | NUR ---
ASSESSMENT PT SEDATED AND INTUBATED , ETT 8, 22 AT LIP WITH VENT SETTINGS OF AC 20/500/50%/PEEP 7. IV FLUIDS INFUSING WITHOUT DIFFICULTY. NSR. NEPRO VIA OGT AT 10ML/H. YATES CATH IN PLACE OLIGURIA NOTED, HEMODIALYSIS PER MD ORDERS. BED ON ROTATION MODE. FAMILY AT BEDSIDE. ASSESSMENT COMPLETED, SEE FLOW SHEET.
[2019-10-19] MEDS ORDERED: PHARMACY COMMUNICATION MISC SCH (19:45)
[2019-10-19] MEDS: FLUCYTOSINE 500 MG PO SCH (20:26)
[2019-10-19] MEDS ORDERED: PANTOPRAZOLE 40 MG/VIAL IVP SCH (21:00)
[2019-10-19] MEDS: AMPHOTERICIN B LIPOSOME IV SCH (21:27)
[2019-10-19] MEDS: WATER IV SCH (21:27)
[2019-10-19] MEDS: DEXTROSE 5% IV SCH (21:27)
--- NOTE | 2019-10-19 23:00 | NUR ---
ASSESSMENT PT SEDATED AND INTUBATED , ETT 8, 22 AT LIP WITH VENT SETTINGS OF AC 20/500/50%/PEEP 7. IV FLUIDS INFUSING WITHOUT DIFFICULTY. NSR. NEPRO VIA OGT AT 10ML/H. YATES CATH IN PLACE OLIGURIA NOTED, HEMODIALYSIS PER MD ORDERS. BED ON ROTATION MODE. FAMILY AT BEDSIDE. ASSESSMENT COMPLETED, SEE FLOW SHEET. CALLBELL WITHIN REACH, BEDSIDE MONITOR ADJUSTED.
[2019-10-20] VITALS (77 sets, daily range): BP systolic 76–162; BP diastolic 40–80
[2019-10-20] MEDS: ARTIFICAL TEARS SOL 15 ML OU SCH ×6 (00:02→18:34)
[2019-10-20] MEDS: METOCLOPRAMIDE 10 MG/2 ML VIAL IVP SCH ×4 (00:04→18:32)
[2019-10-20] MEDS: IPRATROPIUM/ALBUTEROL SULFATE 3 ML SOLUTION IH SCH ×6 (01:28→21:29)
--- NOTE | 2019-10-20 03:00 | NUR ---
ASSESSMENT PT SEDATED AND INTUBATED , ETT 8, 22 AT LIP WITH VENT SETTINGS OF AC 20/500/50%/PEEP 7. IV FLUIDS INFUSING WITHOUT DIFFICULTY. NSR. NEPRO VIA OGT STOPPED FOR RESIDUAL OF 140ML. YATES CATH IN PLACE OLIGURIA NOTED, HEMODIALYSIS PER MD ORDERS. BED ON ROTATION MODE. FAMILY AT BEDSIDE. ASSESSMENT COMPLETED, SEE FLOW SHEET. CALLBELL WITHIN REACH.
[2019-10-20 03:13] LABS: ABG BASE EXCESS -1.6 mmol/L (-2.0-3.0); ABG HCO3 21.1 mmol/L (21.0-28.0); ABG PCO2 31 mmHg (35-48)
[2019-10-20] MEDS: DOXYCYCLINE 100MG+NS 250ML 250 ML IV SCH ×2 (03:30→15:31)
[2019-10-20 03:57] LABS: INR 1.02 (0.85-1.15); PARTIAL THROMBOPLASTIN TIME 32.8 SEC (26.3-35.5); PROTHROMBIN TIME 10.7 SEC (9.6-11.6)
[2019-10-20 04:11] LABS: ALBUMIN 0.6 g/dL (3.5-5.0); BILIRUBIN,TOTAL 0.6 mg/dL (0.2-1.0); CREATININE 4.9 mg/dL (0.5-1.5); PHOSPHORUS 6.1 mg/dL (2.5-4.9); POTASSIUM 4.2 mmol/L (3.5-5.1); TOTAL PROTEIN, SERUM 4.5 g/dL (6.0-8.3)
[2019-10-20 04:35] LABS: HEMATOCRIT 21.1 % (42-54); MEAN CORPUSCULAR HEMOGLOBIN 26.7 pg (27.0-33.0); MEAN CORPUSCULAR HGB CONC 32.2 g/dL (32.0-36.0); MEAN CORPUSCULAR VOLUME 82.7 fL (79-99); NUCLEATED RED BLOOD CELLS 0.3 % (0.0-0.19); PLATELET COUNT (AUTO) 52 K/uL (130-400); RED BLOOD CELL COUNT(AUTO) 2.55 MIL/uL (4.50-6.20); RED CELL DISTRIBUTION WIDTH 15.5 % (11.0-15.5); WHITE BLOOD COUNT (AUTO) 15.6 K/uL (4.8-10.8)
[2019-10-20 04:59] LABS: PLATELET MORPHOLOGY PLT CLUMPS PRESENT
[2019-10-20] MEDS: INSULIN HUMULIN R 100 UNIT/ML 3ML SQ SCH ×4 (06:00→18:00)
[2019-10-20] MEDS: DEXTROSE 50%-WATER 50 ML DISP.SYRIN IV PRN ×2 (06:15→15:31)
[2019-10-20] MEDS: PHARMACY COMMUNICATION MISC SCH ×3 (06:15→22:05)
[2019-10-20] MEDS: FENTANYL 2500MCG+NS 250ML 250 ML IV PRN (07:43)
[2019-10-20] MEDS: FAMOTIDINE/PF 20 MG/2 ML VIAL IV SCH (08:14)
[2019-10-20] MEDS: MEROPENEM 500 MG VIAL IV SCH ×2 (08:14→21:13)
[2019-10-20] MEDS: OSELTAMIVIR SUSP 15 MG/ML (6 CAPS/29ML) PO SCH ×2 (08:15)
[2019-10-20] MEDS: MIDODRINE HCL 5 MG TABLET PO SCH ×3 (08:16→21:00)
[2019-10-20] MEDS: LEVETIRACETAM 500 MG in SODIUM CHLORIDE 0.9% 100 ML IV SCH ×2 (08:57→20:05)
--- NOTE | 2019-10-20 09:00 | NUR ---
pharmacy notified that patient is going to have hd today, as ordered
--- NOTE | 2019-10-20 09:54 | NUR ---
RD FOLLOW UP PT STARTED ON HEMODIALYSIS. NO SIGNS OF ACTIVE GI BLEED, S/P EGD NOTED. POSITIVE FOR RETROVIRAL INFECTION, ANEMIA POSSIBLY DUE TO CHRONIC DISEASE. STARTED TUBE FEEDING ON NEPRO AT 20ML/HR. TOLERATING WELL WITH 50ML RESIDUALS. NO SIGNS OF BLOODY STOOLS NOTED. RD RECOMMENDS NEPRO AT GOAL RATE OF 45ML/HR FORMULA PROVIDES: 1944KCAL/D, 87GM PROTEIN/D, 785ML FLUSH WITH 150ML Q6HRS TOTAL WATER WILL EQUAL TO 1585ML/D WILL CONTINUE TO MONITOR RESIDUALS, LABS AND BM RD WILL CONTINUE TO MONITOR AND FOLLOW UP, THANK YOU. Addendum: 10/20/19 at [address] Amended: Links added.
[2019-10-20] MEDS ORDERED: COMPOUND IV REFRIGERATED 1 EACH IVSOLN MISC PRN (14:00)
[2019-10-20] MEDS: FLUCYTOSINE 500 MG PO SCH (21:15)
[2019-10-20 23:08] LABS: RUBEOLA (MEASLES) IGG 38.7 AU/mL (Immune >16.4)
[2019-10-21] VITALS (46 sets, daily range): BP systolic 114–171; BP diastolic 52–85
[2019-10-21] MEDS: ARTIFICAL TEARS SOL 15 ML OU SCH ×7 (00:15→23:16)
[2019-10-21] MEDS: METOCLOPRAMIDE 10 MG/2 ML VIAL IVP SCH ×4 (00:17→18:00)
[2019-10-21] MEDS: DEXTROSE 50%-WATER 50 ML DISP.SYRIN IV PRN (00:55)
[2019-10-21] MEDS: IPRATROPIUM/ALBUTEROL SULFATE 3 ML SOLUTION IH SCH ×6 (02:06→21:56)
[2019-10-21] MEDS: DOXYCYCLINE 100MG+NS 250ML 250 ML IV SCH ×2 (03:17→15:54)
[2019-10-21] MEDS: INSULIN HUMULIN R 100 UNIT/ML 3ML SQ SCH ×4 (06:00→17:20)
[2019-10-21 06:23] LABS: BASOPHILS % (AUTO) 0.2 % (0.0-5.0); EOSINOPHILS % (AUTO) 1.5 % (0.0-8.0); HEMATOCRIT 23.6 % (42-54); LYMPHOCYTES % (AUTO) 7.1 % (21.0-51.0); MEAN CORPUSCULAR HEMOGLOBIN 27.4 pg (27.0-33.0); MEAN CORPUSCULAR HGB CONC 33.9 g/dL (32.0-36.0); MEAN CORPUSCULAR VOLUME 80.8 fL (79-99); MONOCYTES % (AUTO) 4.1 % (3.0-13.0); NEUTROPHILS % (AUTO) 85.9 % (40.0-77.0); PLATELET COUNT (AUTO) 51 K/uL (130-400); RED BLOOD CELL COUNT(AUTO) 2.92 MIL/uL (4.50-6.20); RED CELL DISTRIBUTION WIDTH 14.7 % (11.0-15.5); WHITE BLOOD COUNT (AUTO) 12.4 K/uL (4.8-10.8)
[2019-10-21 06:45] LABS: CREATININE 4.5 mg/dL (0.5-1.5); MAGNESIUM 1.7 mg/dL (1.80-2.40); PHOSPHORUS 5.8 mg/dL (2.5-4.9); POTASSIUM 4.5 mmol/L (3.5-5.1)
--- NOTE | 2019-10-21 08:11 | NUR ---
RD FOLLOW-UP Meds reviewed. Labs reviewed. Pt with elevated residuals at 150-160ml noted. Last BM noted was on 10/16/19. RD recommends to Hold Tube feeding for 24hrs Continue on Reglan to improve GI motility Okay to start Nepro at 20ml/hr after 24hrs Continue to monitor for BM RD will follow-up in 24hrs. Thank you. Addendum: 10/21/19 at [address] Amended: Links added.
[2019-10-21] MEDS: LEVETIRACETAM 500 MG in SODIUM CHLORIDE 0.9% 100 ML IV SCH ×2 (08:17→19:34)
[2019-10-21] MEDS: MIDODRINE HCL 5 MG TABLET PO SCH ×3 (08:17→21:00)
[2019-10-21] MEDS: OSELTAMIVIR SUSP 15 MG/ML (6 CAPS/29ML) PO SCH ×4 (08:17→08:28)
[2019-10-21] MEDS: MEROPENEM 500 MG VIAL IV SCH ×2 (08:17→21:19)
[2019-10-21] MEDS: FAMOTIDINE/PF 20 MG/2 ML VIAL IV SCH (08:17)
[2019-10-21] MEDS: M.V.I. IV [ADULT] 10 ML, FOLIC ACID 1 MG, THIAMINE HCL 100 MG in SODIUM CHLORIDE 0.9% 1... IV SCH (08:18)
[2019-10-21] MEDS: WATER IV SCH (08:19)
[2019-10-21] MEDS: AMPHOTERICIN B LIPOSOME IV SCH (08:19)
[2019-10-21] MEDS: DEXTROSE 5% IV SCH (08:19)
[2019-10-21 08:24] LABS: ABG BASE EXCESS -0.7 mmol/L (-2.0-3.0); ABG OXYGEN SATURATION 97.4 % (95.0-99.0); ABG PCO2 31 mmHg (35-48)
[2019-10-21] MEDS ORDERED: FLU VACC QS2019-20 36MOS UP/PF 60 MCG/0.5 ML ML IM SCH (09:15)
--- NOTE | 2019-10-21 19:00 | NUR ---
ASSUMED CARE PATIENT REMAINS INTUBATED WITH VENT AC 20/500/+7/40% ET TUBE SECURE WITH BITE BLOCK IN PLACE. ORAL CARE PROVIDED. NO GAG/COUGH REFLEX. RETRACTS TO PAINFUL STIMULI AND FACIAL GRIMACES NOTED. GENERALIZED EDEMA NOTED. YATES CATHETER SECURE TO LEG AND DRAINING SMALL AMOUNT OF URINE. SPECIALTY BED ON ROTATION MODE. SKIN INTACT. BEDSIDE MONITORING. SINUS TACH HR 101-102. COMPLETE ASSESSMENT DONE & CHARTED. DAUGHTER AT BEDSIDE. UPDATED. QUESTIONS ADDRESSED IN DETAIL.
--- NOTE | 2019-10-21 19:08 | NUR ---
Gave report to Kassandra OCHOA all questions answered. Patient left lying semifowler position call light in reach daughter at bedside during shift change. Plan of care reviewed all questions answered.
[2019-10-21] MEDS: ACETAMINOPHEN 325 MG TAB PO PRN (19:35)
[2019-10-21] MEDS ORDERED: FLU VACC QS2019-20 36MOS UP/PF 60 MCG/0.5 ML ML IM ONE (21:00)
--- NOTE | 2019-10-21 21:00 | NUR ---
FEEDING ON HOLD NGT PLACEMENT VERIFIED & RESIDUAL MEASURED =150ML. PLACED NEPRO FEEDING ON HOLD. UPDATED DAUGHTER. SPOUSE HERE NOW WELL. DAUGHTER GOING HOME & STATED SHE WILL BE BACK IN AM.
[2019-10-21] MEDS: FLUCYTOSINE 500 MG PO SCH (21:20)
[2019-10-22] VITALS (33 sets, daily range): BP systolic 114–192; BP diastolic 53–96
[2019-10-22] MEDS: METOCLOPRAMIDE 10 MG/2 ML VIAL IVP SCH ×4 (01:37→18:03)
[2019-10-22] MEDS: IPRATROPIUM/ALBUTEROL SULFATE 3 ML SOLUTION IH SCH ×6 (02:27→21:22)
[2019-10-22] MEDS: ARTIFICAL TEARS SOL 15 ML OU SCH ×6 (03:00→23:27)
[2019-10-22] MEDS: DOXYCYCLINE 100MG+NS 250ML 250 ML IV SCH ×2 (04:00→15:07)
[2019-10-22 04:18] LABS: HEMATOCRIT 23.2 % (42-54); MEAN CORPUSCULAR HEMOGLOBIN 27.4 pg (27.0-33.0); MEAN CORPUSCULAR HGB CONC 33.6 g/dL (32.0-36.0); MEAN CORPUSCULAR VOLUME 81.4 fL (79-99); PLATELET COUNT (AUTO) 55 K/uL (130-400); RED BLOOD CELL COUNT(AUTO) 2.85 MIL/uL (4.50-6.20); RED CELL DISTRIBUTION WIDTH 14.5 % (11.0-15.5); WHITE BLOOD COUNT (AUTO) 10.5 K/uL (4.8-10.8)
[2019-10-22 04:54] LABS: ALBUMIN 0.7 g/dL (3.5-5.0); BILIRUBIN,TOTAL 1.3 mg/dL (0.2-1.0); CREATININE 5.4 mg/dL (0.5-1.5); MAGNESIUM 1.9 mg/dL (1.80-2.40); PHOSPHORUS 7.1 mg/dL (2.5-4.9); POTASSIUM 4.5 mmol/L (3.5-5.1); TOTAL PROTEIN, SERUM 5.4 g/dL (6.0-8.3)
[2019-10-22] MEDS: INSULIN HUMULIN R 100 UNIT/ML 3ML SQ SCH ×4 (06:00→18:00)
[2019-10-22] MEDS ORDERED: PHARMACY COMMUNICATION MISC SCH (06:30)
[2019-10-22 08:19] LABS: ABG BASE EXCESS -1.7 mmol/L (-2.0-3.0); ABG HCO3 19.9 mmol/L (21.0-28.0); ABG OXYGEN SATURATION 98.4 % (95.0-99.0); ABG PCO2 26 mmHg (35-48)
[2019-10-22] MEDS: MULTIVITAMIN TABLET PO SCH (08:25)
[2019-10-22] MEDS: THIAMINE HCL 100 MG TABLET PO SCH (08:25)
[2019-10-22] MEDS: ACETAMINOPHEN 325 MG TAB PO PRN ×2 (08:25→20:07)
[2019-10-22] MEDS: FAMOTIDINE/PF 20 MG/2 ML VIAL IV SCH (08:26)
[2019-10-22] MEDS: OSELTAMIVIR SUSP 15 MG/ML (6 CAPS/29ML) PO SCH ×2 (09:11)
--- NOTE | 2019-10-22 09:50 | NUR ---
RD FOLLOW UP PENDING DIALYSIS TOMORROW. PT HAD A BM 10/21 NOTED. TUBE FEEDING STARTED THIS AM- NEPRO AT 20ML/HR WITH 0ML RESIDUALS NOTED. LABS REVIEWED. MEDS REVIEWED. RD RECOMMENDS TO INCREASE TF RATE TOLERATED IF PT CONTINUES WITH ELEVATED RESIDUALS- HOLD TF MONITOR RESIDUALS, BM AND LABS RD WILL CONTINUE TO MONITOR AND F/U, THANK YOU. Addendum: 10/22/19 at [address] Amended: Links added.
--- NOTE | 2019-10-22 12:25 | NUR ---
Antibiotics late administration for from roll forming machine set up mechanic nurse Kassandra as she was unable to give medicine she states medication was leaking from vial so medicine was not available. Morning doses of merem and ambisome were given late as patient is being dialized and medicine would be cleared out will give as soon as dialysis nurse completes dialysis.
[2019-10-22] MEDS: MEROPENEM 500 MG VIAL IV SCH ×2 (14:30→20:08)
[2019-10-22] MEDS: WATER IV SCH (14:56)
[2019-10-22] MEDS: DEXTROSE 5% IV SCH (14:56)
[2019-10-22] MEDS: AMPHOTERICIN B LIPOSOME IV SCH (14:56)
[2019-10-22] MEDS: HYDRALAZINE HCL 20 MG/ML VIAL IV PRN (15:16)
--- NOTE | 2019-10-22 19:35 | NUR ---
temp 101.7 axillary cold packs placed on axillas and groins. notified dr gaming. orders received to stop doxycycline and start bactrim ds. updated spouse. tylenol 650 mg via ngt given as per prn order. blood cultures drawn.
[2019-10-22] MEDS: FLUCYTOSINE 500 MG PO SCH (20:08)
--- NOTE | 2019-10-22 20:35 | NUR ---
temp down to 99.8 axillary updated spouse
[2019-10-22] MEDS: SULFAMETHOX-TMP DS 800/160 TAB PO SCH (21:00)
[2019-10-23] VITALS (34 sets, daily range): BP systolic 83–191; BP diastolic 43–97
--- NOTE | 2019-10-23 | NUR ---
tolerating feeding with no residuals will increase feeding rate to goal of 45ml/hr as tolerated.
[2019-10-23] MEDS: IPRATROPIUM/ALBUTEROL SULFATE 3 ML SOLUTION IH SCH ×6 (01:28→21:38)
[2019-10-23] MEDS: METOCLOPRAMIDE 10 MG/2 ML VIAL IVP SCH ×4 (02:08→17:54)
[2019-10-23] MEDS: ARTIFICAL TEARS SOL 15 ML OU SCH ×5 (02:09→20:43)
[2019-10-23 05:12] LABS: BASOPHILS % (AUTO) 0.1 % (0.0-5.0); EOSINOPHILS % (AUTO) 0.4 % (0.0-8.0); HEMATOCRIT 24.3 % (42-54); LYMPHOCYTES % (AUTO) 14.4 % (21.0-51.0); MEAN CORPUSCULAR HEMOGLOBIN 26.9 pg (27.0-33.0); MEAN CORPUSCULAR HGB CONC 32.9 g/dL (32.0-36.0); MEAN CORPUSCULAR VOLUME 81.8 fL (79-99); MONOCYTES % (AUTO) 6.5 % (3.0-13.0); NEUTROPHILS % (AUTO) 77.6 % (40.0-77.0); PLATELET COUNT (AUTO) 60 K/uL (130-400); RED BLOOD CELL COUNT(AUTO) 2.97 MIL/uL (4.50-6.20); RED CELL DISTRIBUTION WIDTH 13.8 % (11.0-15.5); WHITE BLOOD COUNT (AUTO) 9.7 K/uL (4.8-10.8)
[2019-10-23 05:46] LABS: ALBUMIN 0.8 g/dL (3.5-5.0); BILIRUBIN,TOTAL 1.3 mg/dL (0.2-1.0); CREATININE 4.4 mg/dL (0.5-1.5); POTASSIUM 3.9 mmol/L (3.5-5.1); TOTAL PROTEIN, SERUM 5.9 g/dL (6.0-8.3)
[2019-10-23] MEDS: INSULIN HUMULIN R 100 UNIT/ML 3ML SQ SCH ×4 (06:00→17:41)
[2019-10-23 08:18] LABS: ABG HCO3 22.4 mmol/L (21.0-28.0); ABG OXYGEN SATURATION 98.9 % (95.0-99.0); ABG PCO2 28 mmHg (35-48)
--- NOTE | 2019-10-23 08:50 | NUR ---
YESENIA Avina NP made aware of most recent ABG. Stated to change vent rate to 16, & check ABG in 1hr. Pending ABG at this time.
[2019-10-23] MEDS: OSELTAMIVIR SUSP 15 MG/ML (6 CAPS/29ML) PO SCH ×2 (09:25)
[2019-10-23] MEDS: MULTIVITAMIN TABLET PO SCH (09:26)
[2019-10-23] MEDS: MEROPENEM 500 MG VIAL IV SCH ×2 (09:26→21:30)
[2019-10-23] MEDS: THIAMINE HCL 100 MG TABLET PO SCH (09:26)
[2019-10-23] MEDS: FAMOTIDINE/PF 20 MG/2 ML VIAL IV SCH (09:26)
[2019-10-23] MEDS: DEXTROSE 5% IV SCH (09:27)
[2019-10-23] MEDS: AMPHOTERICIN B LIPOSOME IV SCH (09:27)
[2019-10-23] MEDS: WATER IV SCH (09:27)
[2019-10-23] MEDS: SULFAMETHOX-TMP DS 800/160 TAB PO SCH ×2 (09:34→21:29)
[2019-10-23 09:59] LABS: ABG BASE EXCESS -0.1 mmol/L (-2.0-3.0); ABG HCO3 21.9 mmol/L (21.0-28.0); ABG OXYGEN SATURATION 98.9 % (95.0-99.0); ABG PCO2 29 mmHg (35-48)
[2019-10-23] MEDS: ACETAMINOPHEN 325 MG TAB PO PRN (11:13)
[2019-10-23] MEDS: HYDRALAZINE HCL 20 MG/ML VIAL IV PRN ×2 (11:43→18:03)
[2019-10-23] MEDS: FLUCYTOSINE 500 MG PO SCH (21:29)
[2019-10-24] VITALS (26 sets, daily range): BP systolic 109–178; BP diastolic 58–98
[2019-10-24] MEDS: IPRATROPIUM/ALBUTEROL SULFATE 3 ML SOLUTION IH SCH ×6 (01:00→21:37)
[2019-10-24] MEDS: METOCLOPRAMIDE 10 MG/2 ML VIAL IVP SCH ×4 (01:08→18:04)
[2019-10-24] MEDS: ARTIFICAL TEARS SOL 15 ML OU SCH ×7 (01:08→23:00)
[2019-10-24] MEDS: INSULIN HUMULIN R 100 UNIT/ML 3ML SQ SCH ×4 (01:18→18:05)
[2019-10-24] MEDS: HYDRALAZINE HCL 20 MG/ML VIAL IV PRN ×2 (01:37→12:25)
[2019-10-24 05:28] LABS: BASOPHILS % (AUTO) 0.3 % (0.0-5.0); EOSINOPHILS % (AUTO) 0.3 % (0.0-8.0); LYMPHOCYTES % (AUTO) 8.4 % (21.0-51.0); MEAN CORPUSCULAR HEMOGLOBIN 27.8 pg (27.0-33.0); MEAN CORPUSCULAR HGB CONC 34.1 g/dL (32.0-36.0); MEAN CORPUSCULAR VOLUME 81.5 fL (79-99); MONOCYTES % (AUTO) 7.1 % (3.0-13.0); NEUTROPHILS % (AUTO) 82.9 % (40.0-77.0); PLATELET COUNT (AUTO) 74 K/uL (130-400); RED CELL DISTRIBUTION WIDTH 13.8 % (11.0-15.5); WHITE BLOOD COUNT (AUTO) 10.3 K/uL (4.8-10.8)
[2019-10-24 05:49] LABS: ALBUMIN 0.9 g/dL (3.5-5.0); CREATININE 5.5 mg/dL (0.5-1.5); POTASSIUM 4.2 mmol/L (3.5-5.1)
[2019-10-24 08:41] LABS: ABG BASE EXCESS 1.3 mmol/L (-2.0-3.0); ABG HCO3 23.1 mmol/L (21.0-28.0); ABG OXYGEN SATURATION 98.6 % (95.0-99.0); ABG PCO2 29 mmHg (35-48)
[2019-10-24] MEDS: MULTIVITAMIN TABLET PO SCH (09:13)
[2019-10-24] MEDS: FAMOTIDINE/PF 20 MG/2 ML VIAL IV SCH (09:13)
[2019-10-24] MEDS: SULFAMETHOX-TMP DS 800/160 TAB PO SCH ×2 (09:13→21:04)
[2019-10-24] MEDS: MEROPENEM 500 MG VIAL IV SCH ×2 (09:13→21:05)
[2019-10-24] MEDS: THIAMINE HCL 100 MG TABLET PO SCH (09:13)
[2019-10-24] MEDS: OSELTAMIVIR SUSP 15 MG/ML (6 CAPS/29ML) PO SCH ×2 (09:13)
[2019-10-24] MEDS: WATER IV SCH (09:15)
[2019-10-24] MEDS: AMPHOTERICIN B LIPOSOME IV SCH (09:15)
[2019-10-24] MEDS: DEXTROSE 5% IV SCH (09:15)
--- NOTE | 2019-10-24 10:52 | NUR ---
RD FOLLOW UP PT TOLERATING NEPRO AT GOAL RATE WELL. RESIDUALS 0-30ML NOTED. LBM: 10/22. SKIN IS INTACT. PT CONTINUES WITH ROUTINE DIALYSIS TREATMENT. MEDS REVIEWED. LABS REVIEWED. CONTINUE WITH RD TF RECOMMENDATIONS AND FLUSHES MONITOR RESIDUALS, LABS, BM Addendum: 10/24/19 at [address] Amended: Links added.
[2019-10-24] MEDS: FLUCYTOSINE 500 MG PO SCH (21:05)
[2019-10-25] VITALS (25 sets, daily range): BP systolic 137–181; BP diastolic 67–95
[2019-10-25] MEDS: IPRATROPIUM/ALBUTEROL SULFATE 3 ML SOLUTION IH SCH ×6 (01:54→22:07)
[2019-10-25] MEDS: ARTIFICAL TEARS SOL 15 ML OU SCH ×6 (03:04→23:01)
[2019-10-25 04:52] LABS: BASOPHILS % (AUTO) 0.2 % (0.0-5.0); EOSINOPHILS % (AUTO) 0.7 % (0.0-8.0); HEMATOCRIT 21.3 % (42-54); LYMPHOCYTES % (AUTO) 10.6 % (21.0-51.0); MEAN CORPUSCULAR HEMOGLOBIN 27.5 pg (27.0-33.0); MEAN CORPUSCULAR HGB CONC 33.3 g/dL (32.0-36.0); MEAN CORPUSCULAR VOLUME 82.6 fL (79-99); MONOCYTES % (AUTO) 9.2 % (3.0-13.0); NEUTROPHILS % (AUTO) 78.2 % (40.0-77.0); PLATELET COUNT (AUTO) 125 K/uL (130-400); RED BLOOD CELL COUNT(AUTO) 2.58 MIL/uL (4.50-6.20); WHITE BLOOD COUNT (AUTO) 9.1 K/uL (4.8-10.8)
[2019-10-25 05:11] LABS: MAGNESIUM 2.2 mg/dL (1.80-2.40); PHOSPHORUS 7.3 mg/dL (2.5-4.9); POTASSIUM 4.3 mmol/L (3.5-5.1)
[2019-10-25] MEDS: INSULIN HUMULIN R 100 UNIT/ML 3ML SQ SCH ×5 (06:00→23:38)
[2019-10-25] MEDS: METOCLOPRAMIDE 10 MG/2 ML VIAL IVP SCH ×5 (06:38→23:03)
[2019-10-25] MEDS: FAMOTIDINE/PF 20 MG/2 ML VIAL IV SCH (09:34)
[2019-10-25] MEDS: MEROPENEM 500 MG VIAL IV SCH (09:34)
[2019-10-25] MEDS: MULTIVITAMIN TABLET PO SCH (09:35)
[2019-10-25] MEDS: THIAMINE HCL 100 MG TABLET PO SCH (09:35)
[2019-10-25] MEDS: SULFAMETHOX-TMP DS 800/160 TAB PO SCH ×2 (09:44→20:34)
[2019-10-25] MEDS: AMPHOTERICIN B LIPOSOME IV SCH (09:47)
[2019-10-25] MEDS: WATER IV SCH (09:47)
[2019-10-25] MEDS: DEXTROSE 5% IV SCH (09:47)
--- NOTE | 2019-10-25 11:37 | NUR ---
CHART CHECK COMPLETED. Pt IS A 49 YEAR OLD MALE ADMITTED SECONDARY TO INFECTIOUS ENCEPHALOPATHY, ACUTE RENAL FAILURE REQUIRING DIALYSIS, CARDIAC ARREST 10/15/2019 REQUIRING INTUBATION, MULTIORGAN FAILURE, PLEURAL EFFUSIONS, ANEMIA, HYPOXIC RESPIRATORY FAILURE, MENINGITIS AND SEVERE SEPSIS. HISTORY OF DM, HYPERTENSION, COCAINE DISORDER AND NEWLY DIAGNOSED HIV. Pt PARTICIPATED IN AN EGD ON 10/18/2019 WITH SECOND CARDIAC ARREST. SKILLED SPEECH THERAPY EVALUATION IS RECOMMENDED 24 HOURS POST EXTUBATION. Addendum: 10/25/19 at 1140 by SUNI OVALLE [facility] Amended: Links added.
[2019-10-25] MEDS ORDERED: NITROGLYCERIN 0.4 MG SL TAB SL PRN (12:30)
[2019-10-25] MEDS ORDERED: SODIUM CHLORIDE 0.9% 1000ML 1,000 ML IV PRN (12:30)
[2019-10-25] MEDS ORDERED: 0.9% SODIUM CHLORIDE 1000 ML IV BAG IV PRN (12:30)
[2019-10-25] MEDS ORDERED: HEPARIN SODIUM 5000UNIT/ML 1ML VIAL IJ PRN ×2 (12:30)
[2019-10-25] MEDS ORDERED: ACETAMINOPHEN 325 MG TAB PO PRN (12:30)
[2019-10-25] MEDS ORDERED: COMPOUND IV MISC 1 EACH IVSOLN MISC PRN (13:00)
[2019-10-25] MEDS: HYDRALAZINE HCL 20 MG/ML VIAL IV PRN (16:14)
[2019-10-25] MEDS: FLUCYTOSINE 500 MG PO SCH (20:34)
[2019-10-26] VITALS (23 sets, daily range): BP systolic 114–178; BP diastolic 61–85
[2019-10-26] MEDS: ARTIFICAL TEARS SOL 15 ML OU SCH ×6 (03:08→22:17)
[2019-10-26] MEDS: IPRATROPIUM/ALBUTEROL SULFATE 3 ML SOLUTION IH SCH ×6 (03:11→21:12)
[2019-10-26 05:18] LABS: MEAN CORPUSCULAR HEMOGLOBIN 27.7 pg (27.0-33.0); MEAN CORPUSCULAR VOLUME 83.9 fL (79-99); PLATELET COUNT (AUTO) 174 K/uL (130-400); RED BLOOD CELL COUNT(AUTO) 2.24 MIL/uL (4.50-6.20); RED CELL DISTRIBUTION WIDTH 14.1 % (11.0-15.5); WHITE BLOOD COUNT (AUTO) 8.1 K/uL (4.8-10.8)
[2019-10-26] MEDS: INSULIN HUMULIN R 100 UNIT/ML 3ML SQ SCH ×4 (05:57→23:01)
[2019-10-26 06:01] LABS: CREATININE 4.7 mg/dL (0.5-1.5); MAGNESIUM 2.2 mg/dL (1.80-2.40); PHOSPHORUS 6.3 mg/dL (2.5-4.9); POTASSIUM 4.2 mmol/L (3.5-5.1)
[2019-10-26] MEDS: METOCLOPRAMIDE 10 MG/2 ML VIAL IVP SCH ×4 (06:19→23:03)
[2019-10-26 06:21] LABS: HEMATOCRIT 18.8 % (42-54)
[2019-10-26] MEDS ORDERED: EPOETIN ALFA 10,000 UNIT/ML VIAL SQ SCH (07:00)
[2019-10-26 08:19] LABS: BAND NEUTROPHILS % (MANUAL) 1 % (0-2); LYMPHOCYTES % (MANUAL) 7 % (22-44); MAN.DIFF COMMENT-IMPRESSION MANUAL DIFFERENTIAL; MONOCYTES % (MANUAL) 9 % (2-9); PLATELET MORPHOLOGY COMMENT ADEQUATE; SEGMENTED NEUTROPHILS % 83 % (40-70)
[2019-10-26] MEDS: IRON SUCROSE COMPLEX 100 MG in SODIUM CHLORIDE 0.9% 50 ML IV SCH (09:04)
[2019-10-26] MEDS: SULFAMETHOX-TMP DS 800/160 TAB PO SCH ×2 (09:04→20:14)
[2019-10-26] MEDS: MULTIVITAMIN TABLET PO SCH (09:04)
[2019-10-26] MEDS: THIAMINE HCL 100 MG TABLET PO SCH (09:04)
[2019-10-26] MEDS: FAMOTIDINE/PF 20 MG/2 ML VIAL IV SCH (09:05)
[2019-10-26] MEDS: DEXTROSE 5% IV SCH (09:21)
[2019-10-26] MEDS: WATER IV SCH (09:21)
[2019-10-26] MEDS: AMPHOTERICIN B LIPOSOME IV SCH (09:21)
[2019-10-26] MEDS: HYDRALAZINE HCL 20 MG/ML VIAL IV PRN (14:46)
[2019-10-26] MEDS: FLUCYTOSINE 500 MG PO SCH (20:14)
[2019-10-26] MEDS: ACETAMINOPHEN 325 MG TAB PO PRN (20:29)
[2019-10-27] VITALS (68 sets, daily range): BP systolic 112–185; BP diastolic 45–120
[2019-10-27] MEDS: HYDRALAZINE HCL 20 MG/ML VIAL IV PRN (01:38)
[2019-10-27] MEDS: IPRATROPIUM/ALBUTEROL SULFATE 3 ML SOLUTION IH SCH ×6 (01:39→22:00)
[2019-10-27] MEDS: ARTIFICAL TEARS SOL 15 ML OU SCH ×6 (02:09→23:28)
[2019-10-27 04:22] LABS: BASOPHILS % (AUTO) 0.1 % (0.0-5.0); EOSINOPHILS % (AUTO) 0.8 % (0.0-8.0); LYMPHOCYTES % (AUTO) 12.6 % (21.0-51.0); MEAN CORPUSCULAR HEMOGLOBIN 27.2 pg (27.0-33.0); MEAN CORPUSCULAR VOLUME 85.1 fL (79-99); MONOCYTES % (AUTO) 8.6 % (3.0-13.0); NEUTROPHILS % (AUTO) 76.5 % (40.0-77.0); PLATELET COUNT (AUTO) 226 K/uL (130-400); RED BLOOD CELL COUNT(AUTO) 2.28 MIL/uL (4.50-6.20); RED CELL DISTRIBUTION WIDTH 14.3 % (11.0-15.5); WHITE BLOOD COUNT (AUTO) 8.5 K/uL (4.8-10.8)
[2019-10-27 04:25] LABS: HEMATOCRIT 19.4 % (42-54)
[2019-10-27 04:44] LABS: CREATININE 5.7 mg/dL (0.5-1.5); POTASSIUM 4.1 mmol/L (3.5-5.1)
[2019-10-27] MEDS: METOCLOPRAMIDE 10 MG/2 ML VIAL IVP SCH ×3 (04:57→17:09)
[2019-10-27] MEDS ORDERED: DEXAMETHASONE 10MG/ML 1ML VIAL 10 MG in SODIUM CHLORIDE 0.9% 50 ML IV ONE (06:00)
[2019-10-27] MEDS: INSULIN HUMULIN R 100 UNIT/ML 3ML SQ SCH ×3 (06:00→19:43)
[2019-10-27] MEDS: THIAMINE HCL 100 MG TABLET PO SCH (08:34)
[2019-10-27] MEDS: MULTIVITAMIN TABLET PO SCH (08:34)
[2019-10-27] MEDS: WATER IV SCH (09:00)
[2019-10-27] MEDS: AMPHOTERICIN B LIPOSOME IV SCH (09:00)
[2019-10-27] MEDS: DEXTROSE 5% IV SCH (09:00)
[2019-10-27] MEDS: IRON SUCROSE COMPLEX 100 MG in SODIUM CHLORIDE 0.9% 50 ML IV SCH (09:00)
[2019-10-27] MEDS ORDERED: SODIUM CHLORIDE 0.9% 250 ML IV ONE (09:00)
[2019-10-27 12:10] LABS: HEMATOCRIT 25.1 % (42-54)
[2019-10-27] MEDS: FAMOTIDINE/PF 20 MG/2 ML VIAL IV SCH (12:16)
[2019-10-27] MEDS: SULFAMETHOX-TMP DS 800/160 TAB PO SCH ×2 (12:34→20:54)
[2019-10-27] MEDS ORDERED: EPOETIN ALFA 10,000 UNIT/ML VIAL SQ SCH (14:00)
--- NOTE | 2019-10-27 16:30 | NUR ---
NOTICED DECEREBRATE POSTURING.
--- NOTE | 2019-10-27 17:00 | NUR ---
DECEREBRATE POSTURING NOTED AGAIN. INFORMED DR. ENRIQUE.
--- NOTE | 2019-10-27 18:30 | NUR ---
SPOKE TO DR. ENRIQUE ABOUT PATIENT DECEREBRATE POSTURING. ORDERS GIVEN. SEE CHART.
--- NOTE | 2019-10-27 19:00 | NUR ---
Family wishes Spouse approached staff and requested information about withdrawal and expressed her wishes to withdraw care tomorrow notified about family decision.
[2019-10-27] MEDS: FLUCYTOSINE 500 MG PO SCH (20:54)
[2019-10-28] VITALS (30 sets, daily range): BP systolic 59–149; BP diastolic 20–88
[2019-10-28] MEDS: METOCLOPRAMIDE 10 MG/2 ML VIAL IVP SCH ×3 (00:27→13:15)
[2019-10-28] MEDS: INSULIN HUMULIN R 100 UNIT/ML 3ML SQ SCH ×3 (00:28→12:00)
[2019-10-28] MEDS: IPRATROPIUM/ALBUTEROL SULFATE 3 ML SOLUTION IH SCH ×4 (01:09→14:00)
[2019-10-28] MEDS: ARTIFICAL TEARS SOL 15 ML OU SCH ×4 (03:44→15:00)
[2019-10-28 04:29] LABS: BASOPHILS % (AUTO) 0.3 % (0.0-5.0); EOSINOPHILS % (AUTO) 1.1 % (0.0-8.0); HEMATOCRIT 21.7 % (42-54); LYMPHOCYTES % (AUTO) 12.4 % (21.0-51.0); MEAN CORPUSCULAR HEMOGLOBIN 27.5 pg (27.0-33.0); MEAN CORPUSCULAR HGB CONC 32.7 g/dL (32.0-36.0); MEAN CORPUSCULAR VOLUME 84.1 fL (79-99); MONOCYTES % (AUTO) 8.5 % (3.0-13.0); NEUTROPHILS % (AUTO) 76.4 % (40.0-77.0); PLATELET COUNT (AUTO) 272 K/uL (130-400); RED BLOOD CELL COUNT(AUTO) 2.58 MIL/uL (4.50-6.20); RED CELL DISTRIBUTION WIDTH 14.2 % (11.0-15.5); WHITE BLOOD COUNT (AUTO) 7.2 K/uL (4.8-10.8)
[2019-10-28 04:56] LABS: ALBUMIN 1.1 g/dL (3.5-5.0); BILIRUBIN,TOTAL 0.6 mg/dL (0.2-1.0); CREATININE 4.5 mg/dL (0.5-1.5); POTASSIUM 3.6 mmol/L (3.5-5.1)
[2019-10-28] MEDS: SULFAMETHOX-TMP DS 800/160 TAB PO SCH (09:00)
[2019-10-28] MEDS: FAMOTIDINE/PF 20 MG/2 ML VIAL IV SCH (09:05)
[2019-10-28] MEDS: IRON SUCROSE COMPLEX 100 MG in SODIUM CHLORIDE 0.9% 50 ML IV SCH (09:06)
--- NOTE | 2019-10-28 09:26 | NUR ---
Dr. Iglesias in to speak with Kimberly Lam. Discussed poor prognosis and family wishes to withdraw care. MRI to be on hold for now as per family wishes.
[2019-10-28] MEDS: WATER IV SCH (09:39)
[2019-10-28] MEDS: DEXTROSE 5% IV SCH (09:39)
[2019-10-28] MEDS: AMPHOTERICIN B LIPOSOME IV SCH (09:39)
[2019-10-28] MEDS: THIAMINE HCL 100 MG TABLET PO SCH (09:55)
[2019-10-28] MEDS: MULTIVITAMIN TABLET PO SCH (09:55)
--- NOTE | 2019-10-28 14:32 | NUR ---
Dr. Ochoa in to see patient. Withdrawal of life support signed by Kimberly Lam. Patient extubated. Placed on 100 % non rebreather.
[2019-10-28] MEDS ORDERED: HYDROMORPHONE 1 MG/1 ML AMP ONE (14:36)
[2019-10-28] MEDS ORDERED: MORPHINE SULFATE 2 MG/ML 1ML SYG ONE (14:42)
[2019-10-28] MEDS ORDERED: LORAZEPAM 2 MG/ML 1 ML VIAL ONE (14:43)
[2019-10-28] MEDS ORDERED: MORPHINE SULFATE 2 MG/ML 1ML SYG IM PRN (14:45)
[2019-10-28] MEDS: LORAZEPAM 2 MG/ML 1 ML VIAL IVP PRN ×3 (15:47→19:17)
[2019-10-28] MEDS: HYDROMORPHONE 1 MG/1 ML AMP IVP PRN ×3 (15:48→19:17)
--- NOTE | 2019-10-28 21:00 | NUR ---
UPDATE PT FAMILY WITHDRAWAL OF CARE EARLIER TODAY PT AT 2100 BACTERIOLOGIST [employer]USTRIAL KASI KRISHNAN AT BEDSIDE TO PRONOUNCE. TOSA NOTIFIED 2114 SPOKE TO MARYJANE SANTANA. PT DENIED AT THIS TIME. ALLOWED FAMILY TIME TO GRIEVE. NO ARRANGEMENT AT THIS TIME. FAMILY TO MAKE ARRANGEMENTS AT LATER TIME. POST MORTEM CARE DONE SECURITY TRANSFER PT TO [facility] AT 2330
== END 2019-10-28 21:00 | disposition expired | DRG 974 ==
LOC: EDH 06:18 → EEVIPCON 06:18 → EDHIP 06:19 → 2BH 11:46
PROVIDERS: ADMIT Internal Medicine; ATTEND Internal Medicine
PROC: 5A1955Z Respiratory Ventilation, Greater than 96 Consecutive Hours (ICD-10-PCS; principal; 2019-10-15)
PROC: 009U3ZX Drainage of Spinal Canal, Percutaneous Approach, Diagnostic (ICD-10-PCS; 2019-10-15)
PROC: 0BH17EZ Insertion of Endotracheal Airway into Trachea, Via Natural or Artificial Opening (ICD-10-PCS; 2019-10-15)
PROC: 02HV33Z Insertion of Infusion Device into Superior Vena Cava, Percutaneous Approach (ICD-10-PCS; 2019-10-16)
PROC: 5A1D70Z Performance of Urinary Filtration, Intermittent, Less than 6 Hours Per Day (ICD-10-PCS; 2019-10-16)
PROC: 5A1D70Z Performance of Urinary Filtration, Intermittent, Less than 6 Hours Per Day (ICD-10-PCS; 2019-10-17)
PROC: 0DJ08ZZ Inspection of Upper Intestinal Tract, Via Natural or Artificial Opening Endoscopic (ICD-10-PCS; 2019-10-18)
PROC: 5A1D70Z Performance of Urinary Filtration, Intermittent, Less than 6 Hours Per Day (ICD-10-PCS; 2019-10-18)
PROC: 5A1D70Z Performance of Urinary Filtration, Intermittent, Less than 6 Hours Per Day (ICD-10-PCS; 2019-10-20)
PROC: 30233R1 Transfusion of Nonautologous Platelets into Peripheral Vein, Percutaneous Approach (ICD-10-PCS; 2019-10-20)
PROC: 30233N1 Transfusion of Nonautologous Red Blood Cells into Peripheral Vein, Percutaneous Approach (ICD-10-PCS; 2019-10-20)
PROC: 5A1D70Z Performance of Urinary Filtration, Intermittent, Less than 6 Hours Per Day (ICD-10-PCS; 2019-10-22)
PROC: 5A1D70Z Performance of Urinary Filtration, Intermittent, Less than 6 Hours Per Day (ICD-10-PCS; 2019-10-25)
PROC: 5A1D70Z Performance of Urinary Filtration, Intermittent, Less than 6 Hours Per Day (ICD-10-PCS; 2019-10-25)
DX: A41.9 Sepsis, unspecified organism (principal); J96.01 Acute respiratory failure with hypoxia; B20 Human immunodeficiency virus [HIV] disease; G92 Toxic encephalopathy; B45.1 Cerebral cryptococcosis; E43 Unspecified severe protein-calorie malnutrition; J18.9 Pneumonia, unspecified organism; N17.0 Acute kidney failure with tubular necrosis; N18.6 End stage renal disease; R65.21 Severe sepsis with septic shock; N17.9 Acute kidney failure, unspecified; B17.9 Acute viral hepatitis, unspecified; E87.1 Hypo-osmolality and hyponatremia; D62 Acute posthemorrhagic anemia; E87.2 Acidosis; I12.0 Hypertensive chronic kidney disease with stage 5 chronic kidney disease or end stage renal disease; B45.9 Cryptococcosis, unspecified; T37.5X1A Poisoning by antiviral drugs, accidental (unintentional), initial encounter; I46.9 Cardiac arrest, cause unspecified; R65.20 Severe sepsis without septic shock; E11.21 Type 2 diabetes mellitus with diabetic nephropathy; E87.5 Hyperkalemia; I16.0 Hypertensive urgency; F14.10 Cocaine abuse, uncomplicated; B02.9 Zoster without complications; B05.9 Measles without complication; D69.59 Other secondary thrombocytopenia; E11.22 Type 2 diabetes mellitus with diabetic chronic kidney disease; E87.6 Hypokalemia; F41.9 Anxiety disorder, unspecified; K76.0 Fatty (change of) liver, not elsewhere classified; D50.9 Iron deficiency anemia, unspecified; E88.09 Other disorders of plasma-protein metabolism, not elsewhere classified; Z66 Do not resuscitate; K29.00 Acute gastritis without bleeding; Z99.2 Dependence on renal dialysis; Z68.29 Body mass index [BMI] 29.0-29.9, adult; Z53.9 Procedure and treatment not carried out, unspecified reason; Z79.4 Long term (current) use of insulin; Z86.73 Personal history of transient ischemic attack (TIA), and cerebral infarction without residual deficits; Z91.19 Patient's noncompliance with other medical treatment and regimen; Z90.49 Acquired absence of other specified parts of digestive tract; Z88.8 Allergy status to other drugs, medicaments and biological substances; Y92.89 Other specified places as the place of occurrence of the external cause
CPT/HCPCS: 31500; 36415; 36430; 36600; 36800; 43235; 62272; 70450; 70551; 71045; 71275; 74176; 76705; 76770; 80048; 80053; 80061; 80074; 80305; 81001; 82010; 82040; 82140; 82270; 82435; 82533; 82550; 82565; 82570; 82803; 82945; 82947; 82948; 83010; 83036; 83540; 83550; 83605; 83615; 83735; 83874; 83930; 84100; 84132; 84145; 84156; 84157; 84295; 84484; 84520; 85014; 85018; 85025; 85027; 85045; 85610; 85730; 86255; 86359; 86361; 86480; 86592; 86641; 86701; 86704; 86706; 86777; 86778; 86812; 86850; 86900; 86901; 86922; 87040; 87071; 87088; 87147; 87205; 87210; 87281; 87283; 87340; 87385; 87390; 87483; 87486; 87520; 87536; 87556; 87581; 87633; 87798; 87900; 87901; 89051; 90935; 92950; 93005; 93306; 93971; 94002; 94003; 94640; 94664; 99291; A4344; C1751; C1894; C9113; G0378; G0480; G0481; J0171; J0289; J0360; J0461; J0610; J0780; J0885; J1100; J1170; J1200; J1610; J1644; J1650; J1756; J1815; J1953; J2020; J2060; J2185; J2250; J2354; J2543; J2704; J2765; J3010; J3360; J3370; J3411; J3490; J7030; J7060; J7070; P9016; P9034; Q9967